=== PATIENT | female | born 1990 | race African-American/Black ===

== ENCOUNTER 2017-09-13 15:47 | Observation (INO) ==
[2017-09-13] MEDS: LACTATED RINGERS 1,000 ML IV SCH (16:50)
[2017-09-13] MEDS: ONDANSETRON 4 MG/2 ML VIAL IV PRN (16:52)
[2017-09-13] MEDS: MEPERIDINE 25 MG/1 ML VIAL IV PRN ×2 (16:55→20:32)
[2017-09-13 19:46] LABS: Hematocrit 36.5 VOL% (35.7-47.0)
[2017-09-13 23:29] LABS: Hematocrit 33.2 VOL% (35.7-47.0); Hemoglobin 11.1 GM/DL (12.0-16.0)
[2017-09-14] MEDS: LACTATED RINGERS 1,000 ML IV SCH (01:05)
[2017-09-14] MEDS: ONDANSETRON 4 MG/2 ML VIAL IV PRN ×2 (04:35→10:18)
[2017-09-14] MEDS: MEPERIDINE 25 MG/1 ML VIAL IV PRN (04:37)
[2017-09-14 04:55] LABS: Hematocrit 32.9 VOL% (35.7-47.0); Hemoglobin 10.8 GM/DL (12.0-16.0)
[2017-09-14 06:46] LABS: Hematocrit 34.6 VOL% (35.7-47.0); Hemoglobin 11.7 GM/DL (12.0-16.0)
[2017-09-14 07:06] LABS: Apearance,Urine CLEAR (Clear); Bilirubin,Urine Negative (Negative); Blood, Urine Negative (Negative); Glucose,Urine (UA) Negative (Negative); Ketones,Urine Negative (Negative); Nitrite,Urine Negative (Negative); Protein,Urine Negative; RBC,Urine <1 /HPF (0-4); Urine Color Yellow (Yellow); Urine Specific Gravity 1.011 (1.001-1.035); Urine Urobilinogen < 2.0 EU/DL (0.2-1.0); WBC,Urine <1 /HPF (0-6)
[2017-09-14 07:17] VITALS: BP 128/71
[2017-09-14 11:40] LABS: Hemoglobin 11.8 GM/DL (12.0-16.0)
== END 2017-09-14 13:05 | disposition home or self-care (01) ==
LOC: N.OB
PROVIDERS: ADMIT Obstetrics & Gynecology; ATTEND Obstetrics & Gynecology

== ENCOUNTER 2017-12-04 21:19 | Inpatient (IN) ==
[2017-12-04] MEDS ORDERED: LACTATED RINGERS 250 ML IV ONE (21:52)
[2017-12-04] MEDS: LACTATED RINGERS 1,000 ML IV SCH (22:05)
[2017-12-04 22:20] LABS: Basophils % 0.3 % (0.0-0.8); Eosinophils # 0.1 10*3/uL (0.0-0.87); Eosinophils % 0.8 % (0.00-10.9); Hematocrit 33.3 VOL% (35.7-47.0); Immature Granulocytes % 1.4 %; Immature Granulocytes Absolute 0.15 #; Lymphocytes # 2.7 10*3/uL (1.4-4.0); Lymphocytes % 25.1 % (21.3-54.2); Mean Corpuscular Hemoglobin 27 PG (27-34); Mean Corpuscular Volume 80.6 FL (87-102); Mean Platelet Volume 10.8 FL (9.6-12.0); Monocytes # 0.7 10*3/uL (0.11-0.8); Monocytes % 6.7 % (1.7-12.7); Neutrophils % 65.7 % (38.7-73.9); Platelet Count 257 T/CUMM (130-400); Red Blood Count 4.13 MC/CUMM (3.8-5.5); White Blood Count 10.7 T/CUMM (4-12)
[2017-12-04 22:45] LABS: Alanine Aminotransferase 29 U/L (13-56); Albumin 2.8 G/DL (3.4-5.0); Alkaline Phosphatase 133 U/L (45-117); Aspartate Amino Transferase 18 U/L (0-37); Bilirubin,Total < 0.39 MG/DL (0.2-1.0); Blood Urea Nitrogen 4 MG/DL (7-18); Calcium 8.6 MG/DL (8.5-10.1); Glucose 117 MG/DL (74-106); Osmolality,Calculated 274.5 MOS/KG (273-304); Potassium 3.6 MMOL/L (3.5-5.1); Sodium 139 MMOL/L (136-145); Total Protein 7.2 G/DL (6.4-8.3)
[2017-12-04] MEDS: ceFAZolin 1,000 MG in SYRINGE 1 EACH IV SCH (22:53)
[2017-12-05] MEDS: ONDANSETRON 4 MG/2 ML VIAL IV PRN (03:54)
[2017-12-05] MEDS: MEPERIDINE 50 MG/1 ML VIAL IV PRN (03:54)
[2017-12-05] MEDS: LACTATED RINGERS 1,000 ML IV SCH ×2 (05:03→12:54)
[2017-12-05] MEDS: ceFAZolin 1,000 MG in SYRINGE 1 EACH IV SCH ×4 (05:20→22:34)
[2017-12-06] MEDS: LACTATED RINGERS 1,000 ML IV SCH ×2 (02:02→15:39)
[2017-12-06] MEDS: ceFAZolin 1,000 MG in SYRINGE 1 EACH IV SCH ×3 (04:26→18:53)
[2017-12-06 06:10] LABS: Basophils % 0.2 % (0.0-0.8); Eosinophils # 0.2 10*3/uL (0.0-0.87); Eosinophils % 1.7 % (0.00-10.9); Hematocrit 30.2 VOL% (35.7-47.0); Hemoglobin 10.2 GM/DL (12.0-16.0); Immature Granulocytes % 1.3 %; Immature Granulocytes Absolute 0.14 #; Lymphocytes # 2.2 10*3/uL (1.4-4.0); Lymphocytes % 21.3 % (21.3-54.2); Mean Corpuscular HGB Conc 33.8 GM/DL (32-36); Mean Corpuscular Hemoglobin 27 PG (27-34); Mean Corpuscular Volume 79.1 FL (87-102); Monocytes # 0.7 10*3/uL (0.11-0.8); Monocytes % 6.2 % (1.7-12.7); Neutrophils # 7.3 10*3/uL (1.4-7.4); Neutrophils % 69.3 % (38.7-73.9); Platelet Count 224 T/CUMM (130-400); Red Blood Count 3.82 MC/CUMM (3.8-5.5); Red Cell Distribution Width 13.8 % (9.3-17.3); White Blood Count 10.5 T/CUMM (4-12)
[2017-12-06] MEDS ORDERED: SODIUM CHLORIDE 0.9% 100 ML IV ONE (11:57)
[2017-12-06] MEDS ORDERED: BUTORPHANOL 1 MG/ML VIAL IV PRN (20:14)
[2017-12-06] MEDS ORDERED: BUTORPHANOL 1 MG/ML VIAL IV SCH (20:30)
[2017-12-06] MEDS: ONDANSETRON 4 MG/2 ML VIAL IV PRN (23:56)
[2017-12-07] MEDS: ceFAZolin 1,000 MG in SYRINGE 1 EACH IV SCH ×2 (01:45→08:13)
[2017-12-07] MEDS ORDERED: PROMETHAZINE 25 MG/1 ML VIAL IM ONE (02:20)
[2017-12-07] MEDS ORDERED: PROMETHAZINE 25 MG/1 ML VIAL ONE (02:21)
[2017-12-07] MEDS: MEPERIDINE 50 MG/1 ML VIAL IV PRN (02:55)
[2017-12-07] MEDS ORDERED: OXYTOCIN/LR 20 UNIT/1,000 ML BAG IV ONE ×3 (03:10→08:11)
[2017-12-07] MEDS ORDERED: SODIUM CHLORIDE 0.9% 1,000 ML IV PRN (03:42)
[2017-12-07] MEDS ORDERED: miSOPROStol 200 MCG TABLET ONE (03:50)
[2017-12-07] MEDS ORDERED: METHYLERGONOVINE 0.2 MG/1 ML AMP ONE (03:51)
[2017-12-07] MEDS ORDERED: miSOPROStol 200 MCG TABLET RECTAL ONE (04:04)
[2017-12-07] MEDS ORDERED: RHO(D) IMMUNE GLOBULIN 300 MCG SYRINGE IM ONE (04:12)
[2017-12-07] MEDS ORDERED: LANOLIN 50% CREAM 0.3 OZ TUBE TOP PRN (04:12)
[2017-12-07] MEDS ORDERED: HYDROCORTISONE 2.5% RECTAL CREAM 30 GM TUBE TOP PRN (04:12)
[2017-12-07] MEDS ORDERED: ONDANSETRON 4 MG/2 ML VIAL IV PRN (04:12)
[2017-12-07] MEDS ORDERED: BENZOCAINE 20%/MENTHOL 0.5% SPRAY 56 GM CAN TOP PRN (04:12)
[2017-12-07] MEDS ORDERED: ACETAMINOPHEN 325 MG TABLET PO PRN (04:12)
[2017-12-07] MEDS ORDERED: DIPH/TET/ACEL PERT BOOSTER VACCINE 0.5 ML VIAL IM ONE (04:12)
[2017-12-07] MEDS ORDERED: BISACODYL 10 MG SUPP RECTAL PRN (04:12)
[2017-12-07] MEDS ORDERED: WITCH HAZEL PADS 100/JAR TOP PRN (04:12)
[2017-12-07] MEDS ORDERED: MEASLES/MUMPS/RUBELLA VACCINE 0.5 ML VIAL SUBCUT ONE (04:12)
[2017-12-07 06:40] LABS: Basophils # 0.1 10*3/uL (0.0-0.2); Basophils % 0.2 % (0.0-0.8); Hematocrit 26.2 VOL% (35.7-47.0); Hemoglobin 8.7 GM/DL (12.0-16.0); Immature Granulocytes % 1.4 %; Immature Granulocytes Absolute 0.37 #; Lymphocytes # 1.3 10*3/uL (1.4-4.0); Lymphocytes % 4.9 % (21.3-54.2); Mean Corpuscular HGB Conc 33.2 GM/DL (32-36); Mean Corpuscular Hemoglobin 27 PG (27-34); Mean Corpuscular Volume 81.1 FL (87-102); Mean Platelet Volume 10.5 FL (9.6-12.0); Monocytes # 0.8 10*3/uL (0.11-0.8); Neutrophils # 24.4 10*3/uL (1.4-7.4); Neutrophils % 90.5 % (38.7-73.9); Platelet Count 240 T/CUMM (130-400); Red Blood Count 3.23 MC/CUMM (3.8-5.5); Red Cell Distribution Width 13.6 % (9.3-17.3); White Blood Count 26.9 T/CUMM (4-12)
[2017-12-07 06:58] LABS: Lymphocytes 3 % (20-55); Platelet Estimate Adequate; Segmented Neutrophils 95 % (50-85); Total Cells Counted 100
[2017-12-07 06:59] LABS: Hypochromasia 1+; Ovalocytes Slight
[2017-12-07] MEDS: DOCUSATE SODIUM 100 MG CAPSULE PO SCH ×2 (09:05→22:37)
[2017-12-07] MEDS: oxyCODONE/ACETAMINOPHEN 5-325 MG TABLET PO PRN ×2 (11:21→17:46)
[2017-12-07] MEDS: IBUPROFEN 800 MG TABLET PO PRN ×2 (11:21→17:45)
[2017-12-08 05:22] LABS: Basophils % 0.2 % (0.0-0.8); Eosinophils # 0.3 10*3/uL (0.0-0.87); Eosinophils % 1.9 % (0.00-10.9); Hematocrit 22.8 VOL% (35.7-47.0); Hemoglobin 7.7 GM/DL (12.0-16.0); Immature Granulocytes % 1.4 %; Immature Granulocytes Absolute 0.19 #; Lymphocytes # 3.8 10*3/uL (1.4-4.0); Lymphocytes % 28.2 % (21.3-54.2); Mean Corpuscular HGB Conc 33.8 GM/DL (32-36); Mean Corpuscular Hemoglobin 27 PG (27-34); Mean Corpuscular Volume 80.9 FL (87-102); Mean Platelet Volume 10.8 FL (9.6-12.0); Monocytes # 0.8 10*3/uL (0.11-0.8); Monocytes % 5.7 % (1.7-12.7); Neutrophils # 8.4 10*3/uL (1.4-7.4); Neutrophils % 62.6 % (38.7-73.9); Platelet Count 197 T/CUMM (130-400); Red Blood Count 2.82 MC/CUMM (3.8-5.5); Red Cell Distribution Width 13.9 % (9.3-17.3); White Blood Count 13.4 T/CUMM (4-12)
[2017-12-08] MEDS: oxyCODONE/ACETAMINOPHEN 5-325 MG TABLET PO PRN ×2 (09:19→15:47)
[2017-12-08] MEDS: FERROUS SULFATE 325 MG TABLET PO SCH ×3 (11:12→20:17)
[2017-12-08] MEDS: DOCUSATE SODIUM 100 MG CAPSULE PO SCH ×2 (11:12→20:18)
[2017-12-08] MEDS: IBUPROFEN 800 MG TABLET PO PRN (22:03)
[2017-12-09] MEDS ORDERED: ZALEPLON 5 MG CAPSULE PO PRN (02:20)
[2017-12-09 07:16] VITALS: BP 119/62
[2017-12-09] MEDS: FERROUS SULFATE 325 MG TABLET PO SCH (08:55)
[2017-12-09] MEDS: DOCUSATE SODIUM 100 MG CAPSULE PO SCH (08:55)
== END 2017-12-09 09:15 | disposition home or self-care (01) | DRG 805 ==
LOC: N.LDOUT 21:19 → N.LD 21:23 → N.OB 12-07 10:50
PROVIDERS: ADMIT Obstetrics & Gynecology; ATTEND Obstetrics & Gynecology